=== PATIENT | male | born 1965 | race African-American/Black ===

== ENCOUNTER 2017-12-21 18:03 | Emergency (ER) | payer OTHER ==
[~2017-12-21] VITALS: Ht 185.4 cm; Wt 86.2 kg
[2017-12-21] MEDS ORDERED: PRILOSEC10 MG PO (18:21)
[2017-12-21 18:33] LABS: URINE BILIRUBIN NEGATIVE (Negative); URINE BLOOD NEGATIVE (Negative); URINE CLARITY CLEAR; URINE COLOR YELLOW; URINE GLUCOSE-RANDOM NEGATIVE (Negative); URINE KETONES NEGATIVE (Negative); URINE LEUKOCYTES NEGATIVE (Negative); URINE NITRITE NEGATIVE (Negative); URINE PROTEIN NEGATIVE (Negative); URINE SPECIFIC GRAVITY >= 1.030 (1.005-1.030); URINE UROBILINOGEN 0.2 E.U./dl (0.2-1.0)
[2017-12-21 18:43] LABS: HEMATOCRIT 46.3 % (42.0-52.0); HEMOGLOBIN 15.8 gm/dL (14.0-18.0); MCH 31.5 pg (26.0-34.0); MCHC 34.1 g/dL (28.0-37.0); MCV 92.2 fL (80.0-100.0); MPV 9.8 fl. (7.2-11.1); NUCLEATED RBCS 0 /100WBC; PLATELET COUNT* 236 thou/uL (150-400); RBC 5.02 mil/uL (4.50-6.00); RDW-CV 13.2 % (10.5-14.5); WBC 6.2 thou/uL (4.0-11.0)
[2017-12-21 18:51] LABS: CALCIUM 8.6 mg/dL (8.5-10.1); CREATININE 1.3 mg/dL (0.6-1.3); POTASSIUM 3.8 mmol/L (3.5-5.1)
[2017-12-21 18:56] LABS: ALBUMIN 3.7 g/dL (3.4-5.0); TOTAL BILIRUBIN 0.5 mg/dL (<0.1-1.0); TOTAL PROTEIN 7.4 g/dL (6.4-8.2)
[2017-12-21 19:05] LABS: ABSOLUTE EOSINOPHILS 0.4 thou/uL (0.0-0.7); ABSOLUTE LYMPHOCYTES 2.2 thou/uL (0.8-5.3); ABSOLUTE MONOCYTES 0.5 thou/uL (0.0-1.2); ABSOLUTE NEUTROPHILS 3.1 thou/uL (1.6-8.1)
[2017-12-21 19:06] LABS: LARGE PLATELETS OCCASIONAL; PLATELET ESTIMATE ADEQUATE
[2017-12-21] MEDS ORDERED: LOMOTIL TABLET1 EACH PO (19:54)
[2017-12-21] MEDS ORDERED: FLAGYL500 MG PO (19:54)
[2017-12-21 20:11] VITALS: BP 119/78
== END 2017-12-21 20:13 | disposition home or self-care (01) ==
LOC: M.ERS 18:03
PROVIDERS: Nurse Practitioner Family
DX: R19.7 Diarrhea, unspecified (principal); R10.30 Lower abdominal pain, unspecified; J45.909 Unspecified asthma, uncomplicated

== ENCOUNTER 2019-04-08 18:56 | Emergency (ER) | payer OTHER ==
[~2019-04-08] VITALS: Ht 182.9 cm; Wt 97.5 kg
--- NOTE | ~2019-04-08 | EKG ---
[place] [address] ELECTROCARDIOGRAM REPORT Name: ANJALI GANT Juan Antonio Room: [facility]#: [id number] Admission: 04/08/19 Attend Phys: Discharge: 04/08/19 Date of : 67 Date of Service: 04/08/192015 Report #: [id number] THIS REPORT FOR: cc: Hilario Price James A. DO Epiphany, Epiphany MD ~ THIS REPORT FOR: //name// [facility] ED Test Date: 2019-04-08 Test Time: 20:16:15 Pat Name: ANJALI GANT Department: Room: Gender: M [employer] Designer: : 1965 Requested By: Irais Henning Order Number: [id number] MD: Measurements Intervals [place] Rate: 97 P: 59 AL: 167 QRS: -29 QRSD: 79 T: 45 QT: 358 QTc: 455 Interpretive Statements Sinus rhythm Borderline left axis deviation Borderline T wave abnormalities No previous ECG available for comparison [email or web address] By: 15 15 Epiphany Epiphany, /EPI
[~2019-04-08 18:56] MED LIST: AUGMENTIN 875-1 EACH PO; FLAGYL500 MG PO; LOMOTIL TABLET1 EACH PO; NORCO 5-325 TA1 EACH PO; PRILOSEC10 MG PO
[2019-04-08 20:14] LABS: URINE BILIRUBIN NEGATIVE (Negative); URINE BLOOD NEGATIVE (Negative); URINE CLARITY CLEAR; URINE COLOR YELLOW; URINE GLUCOSE-RANDOM NEGATIVE (Negative); URINE KETONES NEGATIVE (Negative); URINE LEUKOCYTES-REFLEX NEGATIVE (Negative); URINE NITRITE-REFLEX NEGATIVE (Negative); URINE PROTEIN TRACE (Negative)
[2019-04-08 20:35] LABS: HEMOGLOBIN 16.6 gm/dL (14.0-18.0); MCH 32.2 pg (26.0-34.0); MCHC 35.4 g/dL (28.0-37.0); MCV 91.1 fL (80.0-100.0); MPV 9.6 fl. (7.2-11.1); NUCLEATED RBCS 0 /100WBC; PLATELET COUNT* 211 thou/uL (150-400); RBC 5.16 mil/uL (4.50-6.00); WBC 7.6 thou/uL (4.0-11.0)
[2019-04-08 20:58] LABS: CALCIUM 8.3 mg/dL (8.5-10.1); POTASSIUM 3.8 mmol/L (3.5-5.1)
[2019-04-08 20:59] LABS: ABSOLUTE LYMPHOCYTES 0.5 thou/uL (0.8-5.3); ABSOLUTE MONOCYTES 0.4 thou/uL (0.0-1.2); ABSOLUTE NEUTROPHILS 6.8 thou/uL (1.6-8.1); ATYPICAL LYMPHS 2 %; PLATELET ESTIMATE ADEQUATE
[2019-04-08 21:03] LABS: ALBUMIN 3.8 g/dL (3.4-5.0); TOTAL BILIRUBIN 0.9 mg/dL (<0.1-1.0); TOTAL PROTEIN 7.3 g/dL (6.4-8.2)
[2019-04-08] MEDS ORDERED: ONDANSETRON HCL4 M2 PO (22:03)
[2019-04-08] MEDS ORDERED: BENTYL 20 MG TA20 M1 PO (22:03)
[2019-04-08 23:18] VITALS: BP 120/86
== END 2019-04-08 23:18 | disposition home or self-care (01) ==
LOC: M.ERS 18:56
PROVIDERS: Nurse Practitioner Family
DX: K52.9 Noninfective gastroenteritis and colitis, unspecified (principal); E86.0 Dehydration; K57.90 Diverticulosis of intestine, part unspecified, without perforation or abscess without bleeding; J45.909 Unspecified asthma, uncomplicated